=== PATIENT | female | born 1945 | race Caucasian/White ===

== ENCOUNTER 2021-01-03 08:06 | Day surgery (SDC) | payer MEDICARE, OTHER, SELFPAY ==
[2021-01-03 08:22] VITALS: BP 167/87; PULSE 75; RESP 16; TEMP 36.1; O2SAT 99
[2021-01-03] MEDS: Tropicam./Phenyleph. (1/2.5%) 5 ML BTL OD ×3 (08:31→08:44)
[2021-01-03] MEDS: Tetracaine 0.5% 4 ML BTL OD (09:57)
[2021-01-03] MEDS: Balanced Salt Soln.-PLUS 500 ML BAG (09:57)
[2021-01-03] MEDS: Duovisc Viscoelastic System EACH 1 EACH (09:58)
[2021-01-03] MEDS: Lidocaine 1% Pres-Free 5 ML VIAL (09:58)
[2021-01-03] MEDS: Lidocaine 2% Jelly 6 ML SYR (09:59)
[2021-01-03] MEDS: Povidone-Iodine Ophth 30 ML BTL (10:00)
--- NOTE | 2021-01-03 10:18 | ROE_ITS ---
Date of service: 01/03/21 Time of Service: 10:18 Operative Note Operative Note DATE OF PROCEDURE: 01/03/21 PRE-OP DIAGNOSIS: Nuclear cataract, right eye POST-OP DIAGNOSIS: same PROCEDURE: Cataract extraction using phacoemulsification with intraocular lens implant, right eye SURGEON: Maco Pack ANESTHESIA TYPE: Local By Surgeon and MAC Refer to Anesthesia Record ESTIMATED BLOOD LOSS: 0 PATHOLOGY: none sent COMPLICATIONS: None Patient was transported to: same day Patient's condition: stable Implants: Branden and Branden [employer] / [employer] Tecnis ZCB00 intraocular lens Indications: Progressive decreased vision due to cataract, right eye Procedure Description: CATARACT SURGERY OPERATIVE REPORT PREOPERATIVE DIAGNOSIS: Nuclear cataract, right eye POSTOPERATIVE DIAGNOSIS: Same OPERATION: Cataract extraction using phacoemulsification with posterior chamber intraocular lens implant, right eye. IOL: IOL Rolling Attendant/Model: [employer] / LOUISE Tecnis ZCB00 IOL Power: + +22.0 diopters IOL Serial Number: [id number] Optic Diameter: 6.0mm Haptic/Overall Diameter: 13.0mm PHACO INFO: Philipp [employer]urion Vision System with OZil and Active Fluidics Cumulative Dispersed Energy (CDE): 16.12 seconds SURGEON: Maco Pack MD, JESUS ANESTHESIA: Monitored Anesthesia Care (MAC), with local sub-tenon's anesthetic infiltration COMPLICATIONS: None SPECIMENS: None INDICATIONS FOR PROCEDURE: Patient is a 75-year-old lady with history of diminished visual acuity in her right eye. She is noted to have a significant nuclear cataract. The option of cataract surgery was offered to the patient and she wished to proceed. PROCEDURE: The correct surgical eye was identified and marked as the right eye and the pupil was dilated in the preoperative area using mydriatics and cycloplegics. The dilated pupil size was 7.0 mm. She elected to proceed without oral sedation. The patient was brought to the operating room where cardiopulmonary monitoring was instituted and surgical time-out was performed, confirming the correct operative eye and IOL power. Topical anesthesia was administered and ophthalmic povidone-iodine 5% was instilled into the conjunctival fornices. Lidocaine gel was applied to the cornea and the demond-ocular area was prepped with Betadine 10% solution and draped in the usual sterile fashion for intraocular surgery, including an aperture drape. A Tegaderm transparent film dressing was cut in half and used to cover the lashes and lid margins. Care was taken to sequester the lashes and lid margins under the Tegaderm dressing. A lid speculum was placed between the lids of the operative eye and the Sarah-Jaron operating microscope was maneuvered into position. Madison scissors were then used to make a conjunctival buttonhole approximately 6mm posterior to the limbus in the inferonasal quadrant. Blunt dissection was carried out to expose bare sclera, and a blunt-tipped sub-tenon?s anesthesia cannula was introduced and passed posteriorly along the globe where non- preserved plain lidocaine was injected into posterior sub-Tenon?s space. A sideport knife was used to make a paracentesis port inferiortemporally. Intraocular phenylephrine/lidocaine was injected into the anterior chamber. The anterior chamber was then filled with viscoelastic. A 2.4mm keratome knife was used to create a half-thickness groove at the limbus and then to construct a th ree-plane near-clear corneal tunnel extending 2.0mm into clear cornea in the superiortemporal position. . A flap was raised on the anterior capsule and capsulorhexis forceps were used to complete a continuous curvilinear capsulorhexis of 5.5 mm. Balanced salt solution was then used to perform cortical cleaving hydrodissection and nuclear hydrodelineation until the lens could be freely rotated within the capsular bag. The lens nucleus was then disassembled and removed within the capsular bag and iris plane using phacoemulsification. Residual cortical material was removed using the I/A handpiece. The posterior capsule was carefully polished to remove as much residual lens epithelial cells as safely possible. The capsular bag was then inflated and the anterior chamber deepened with viscoelastic. The lens implant described above was inserted into the capsular bag using the LOUISE In[place]iat Injector. A Kuglen hook was used to dial the IOL into position. Residual viscoelastic was then removed first from posterior to the IOL, then from the anterior chamber using the I/A handpiece. The lens implant was noted to center nicely within the capsular bag. The incisions were stromally hydrated, and the anterior chamber was reformed using BSS. Then 0.5cc of moxifloxacin 1.0mg/ml were injected into the capsular bag and anterior chamber. The incisions were checked with a Weck spear and found to be secure. Several drops of ophthalmic povidone-iodine 5% were then applied to the eye followed by two drops of Imprimis combination prednisolone/moxifloxacin/nepafenac solution. The drapes were removed and a clear plastic protective eye shield was placed over the eye. The patient was then returned to [facility] in stable condition.
--- NOTE | 2021-01-03 10:18 | W.PM.DSUDISC ---
Discharge Plan Disposition Patient Disposition: HOME Condition: Good Discharge Details Attending Provider: Maco Pack Primary Care Provider: No,Local Home Meds and New Rx's Prescriptions: No Action atorvastatin 40 MG tablet 1 tab PO DAILY Qty: 90 RF: 3 lisinopril 40 MG tablet 1 tab PO DAILY Qty: 90 RF: 3 metoprolol succinate 50 mg tablet extended release 24 hr 50 mg PO DAILY RF: 0 sennosides-docusate sodium [Senna with Docusate Sodium] 8.6-50 mg Tablet 1 - 4 tab-cap PO BID RF: 0 calcium carbonate [Calcium 500] 500 mg calcium (1,250 mg) Tablet 1,250 mg PO BID RF: 0 sertraline 25 mg tablet 25 mg PO DAILY RF: 0 hydrochlorothiazide 25 mg tablet 25 mg PO DAILY RF: 0 nystatin [Nyamyc] 100,000 unit/gram powder 1 applic TOPICAL QID RF: 0 fluticasone propionate 50 mcg/actuation spray,suspension 1 spray INTRANASAL DAILY RF: 0 cholecalciferol (vitamin D3) [Vitamin D3] 10 mcg (400 unit) Capsule 20 mcg PO DAILY RF: 0 Discharge Instructions Stand Alone Forms: Post-op Topical Cataract, Rico Cisse (DSU) Discharge Orders Discharge Orders: Discharge Order (Routine); Ordered 01/03/21 Ordered By: Maco Pack DS: Diagnosis Discharge Diagnosis (1) Nuclear sclerotic cataract of right eye: Status: Resolved
== END 2021-01-03 10:37 | disposition home or self-care (01) ==
PROVIDERS: Visit Provider Ophthalmology
PROC: (CPT 66984; principal; 2021-01-03 10:30)
DX: H25.11 Age-related nuclear cataract, right eye (principal); I10 Essential (primary) hypertension
CPT/HCPCS: 66984; V2632

== ENCOUNTER 2021-01-17 08:52 | Day surgery (SDC) | payer MEDICARE, OTHER, SELFPAY ==
[2021-01-17 09:18] VITALS: BP 152/87; PULSE 71; RESP 16; TEMP 36.1; O2SAT 97
--- NOTE | 2021-01-17 10:41 | W.PM.DSUDISC ---
Discharge Plan Disposition Patient Disposition: HOME Condition: Good Discharge Details Attending Provider: Maco Pack Primary Care Provider: No,Local Home Meds and New Rx's Prescriptions: No Action atorvastatin 40 MG tablet 1 tab PO DAILY Qty: 90 RF: 3 lisinopril 40 MG tablet 1 tab PO DAILY Qty: 90 RF: 3 metoprolol succinate 50 mg tablet extended release 24 hr 50 mg PO DAILY RF: 0 sennosides-docusate sodium [Senna with Docusate Sodium] 8.6-50 mg Tablet 1 - 4 tab-cap PO BID RF: 0 calcium carbonate [Calcium 500] 500 mg calcium (1,250 mg) Tablet 1,250 mg PO BID RF: 0 sertraline 25 mg tablet 25 mg PO DAILY RF: 0 hydrochlorothiazide 25 mg tablet 25 mg PO DAILY RF: 0 nystatin [Nyamyc] 100,000 unit/gram powder 1 applic TOPICAL QID RF: 0 fluticasone propionate 50 mcg/actuation spray,suspension 1 spray INTRANASAL DAILY RF: 0 cholecalciferol (vitamin D3) [Vitamin D3] 10 mcg (400 unit) Capsule 20 mcg PO DAILY RF: 0 Discharge Instructions Stand Alone Forms: Post-op Topical Cataract, Rico Cisse (DSU) Discharge Orders Discharge Orders: Discharge Order (Routine); Ordered 01/17/21 Ordered By: Maco Pack DS: Diagnosis Discharge Diagnosis (1) Nuclear sclerotic cataract of left eye: Status: Resolved
--- NOTE | 2021-01-17 10:41 | W.PM.OP ---
Date of service: 01/17/21 Time of Service: 10:41 Operative Note Operative Note DATE OF PROCEDURE: 01/17/21 PRE-OP DIAGNOSIS: Nuclear cataract, left eye POST-OP DIAGNOSIS: same PROCEDURE: Cataract extraction using phacoemulsification with intraocular lens implant, left eye SURGEON: Maco Pack ANESTHESIA TYPE: Local By Surgeon and MAC Refer to Anesthesia Record PATHOLOGY: none sent COMPLICATIONS: None Patient was transported to: same day Patient's condition: stable Implants: Branden and Brand[employer] Vision / [employer] Tecnis ZCB00 Indications: Progressive decreased vision due to cataract, left eye Procedure Description: CATARACT SURGERY OPERATIVE REPORT PREOPERATIVE DIAGNOSIS: Nuclear cataract, left eye POSTOPERATIVE DIAGNOSIS: Same OPERATION: Cataract extraction using phacoemulsification with posterior chamber intraocular lens implant, left eye. IOL: IOL Lead Neurodiagnostic Technologist/Model: J[employer]J Vision / LOUISE Tecnis ZCB00 IOL Power: + 22.0 diopters IOL Serial Number: [id number] Optic Diameter: 6.0mm Haptic/Overall Diameter: 13.0mm PHACO INFO: [employer] Vision System with OZil and Active Fluidics Cumulative Dispersed Energy (CDE): 11.55 seconds SURGEON: Maco Pack MD, JESUS ANESTHESIA: Monitored Anesthesia Care (MAC), with local sub-tenon's anesthetic infiltration COMPLICATIONS: None SPECIMENS: None INDICATIONS FOR PROCEDURE: The patient is a 75-year-old lady with history of diminished visual acuity in both eyes secondary to the development of bilateral nuclear cataract. She has already undergone cataract surgery in her right eye and is doing well postoperatively. She now presents for cataract surgery in the left eye. PROCEDURE: The correct surgical eye was identified and marked as the left eye and the pupil was dilated in the preoperative area using mydriatics and cycloplegics. The dilated pupil size was 6.5 mm. She elected to proceed without oral sedation. The patient was brought to the operating room where cardiopulmonary monitoring was instituted and surgical time-out was performed, confirming the correct operative eye and IOL power. Topical anesthesia was administered and ophthalmic povidone-iodine 5% was instilled into the conjunctival fornices. Lidocaine gel was applied to the cornea and the demond-ocular area was prepped with Betadine 10% solution and draped in the usual sterile fashion for intraocular surgery, including an aperture drape. A Tegaderm transparent film dressing was cut in half and used to cover the lashes and lid margins. Care was taken to sequester the lashes and lid margins under the Tegaderm dressing. A lid speculum was placed between the lids of the operative eye and the Sarah-Jaron operating microscope was maneuvered into position. Madison scissors were then used to make a conjunctival buttonhole approximately 6mm posterior to the limbus in the inferonasal quadrant. Blunt dissection was carried out to expose bare sclera, and a blunt-tipped sub-tenon?s anesthesia cannula was introduced and passed posteriorly along the globe where non-preserved plain lidocaine was injected into posterior sub-Tenon?s space. A sideport knife was used to make a paracentesis port superior/superiortemporally. Intraocular phenylephrine/lidocaine was injected into the anterior chamber. The anterior chamber was then filled with viscoelastic. A 2.4mm keratome knife was used to create a half-thickness groove at the limbus and then to construct a three-plane near-clear corneal tunnel extending 2.0mm into clear cornea in the temporal position. . A flap was raised on the anterior capsule and capsulorhexis forceps were used to complete a continuous curvilinear capsulorhexis of 5.5 mm. Balanced salt solution was then used to perform cortical cleaving hydrodissection and nuclear hydrodelineation until the lens could be freely rotated within the capsular bag. The lens nucleus was then disassembled and removed within the capsular bag and iris plane using phacoemulsification. Residual cortical material was removed using the 45-degree angled silicone I/A tip with 0.3mm port. The posterior capsule was carefully polished to remove as much residual lens epithelial cells as safely possible. The capsular bag was then inflated and the anterior chamber deepened with viscoelastic. The lens implant described above was inserted into the capsular bag using the LOUISE [place] Injector. A Kuglen hook was used to dial the IOL into position. Residual viscoelastic was then removed first from posterior to the IOL, then from the anterior chamber using the I/A handpiece. The lens implant was noted to center nicely within the capsular bag. The incisions were stromally hydrated, and the anterior chamber was reformed using BSS. Then 0.5cc of moxifloxacin 1.0mg/ml were injected into the capsular bag and anterior chamber. The incisions were checked with a Weck spear and found to be secure. Several drops of ophthalmic povidone-iodine 5% were then applied to the eye followed by two drops of Imprimis combination prednisolone/moxifloxacin/nepafenac solution. The drapes were removed and a clear plastic protective eye shield was placed over the eye. The patient was then returned to Same Day Surgery in stable condition.
[2021-01-17] MEDS: Lidocaine 1% Pres-Free 5 ML VIAL (11:10)
[2021-01-17] MEDS: Balanced Salt Soln.-PLUS 500 ML BAG (11:12)
[2021-01-17] MEDS: Duovisc Viscoelastic System EACH 1 EACH (11:13)
[2021-01-17] MEDS: Lidocaine 2% Jelly 6 ML SYR (11:13)
[2021-01-17] MEDS: Povidone-Iodine Ophth 30 ML BTL (11:14)
== END 2021-01-17 10:56 | disposition home or self-care (01) ==
PROVIDERS: Visit Provider Ophthalmology
PROC: (CPT 66984; principal; 2021-01-17 11:30)
DX: H25.12 Age-related nuclear cataract, left eye (principal); Z98.41 Cataract extraction status, right eye; Z96.1 Presence of intraocular lens
CPT/HCPCS: 66984; V2632